=== PATIENT | male | born 1955 | race Caucasian/White ===

== ENCOUNTER 2018-05-26 07:43 | Inpatient (IN) | payer OTHER ==
[~2018-05-26] VITALS: Ht 182.9 cm; Wt 88.9 kg
[~2018-05-26 07:43] MED LIST: ASPI-515 PO; FOLI-17 PO; FURO-93 PO; LACT1CAP35 PO; MAGN400T7 PO; MULT1TAB41 PO; PANT40TA3 PO; SPIR50TA PO; THIA100T10 PO
[2018-05-26] MEDS ORDERED: LIDOCAINE-MPF 1%, 5ML ONE (08:03)
[2018-05-26 08:28] LABS: ALANINE AMINOTRANSFERASE 92 U/L (12-78); ALBUMIN 1.3 g/dL (3.4-5.0); ANION GAP 15 mmol/L (5-15); CALCIUM 7.9 mg/dL (8.5-10.1); CHLORIDE 81 mmol/L (98-107); CREATININE 2.53 mg/dL (0.7-1.3)
[2018-05-26 08:31] LABS: ALKALINE PHOSPHATASE 148 U/L (45-117); BILIRUBIN,TOTAL 11.1 mg/dL (0.2-1.0); TOTAL PROTEIN 6.2 g/dL (6.4-8.2)
[2018-05-26 08:46] LABS: MEAN CORPUSCULAR HEMOGLOBIN 39.5 pg (27.5-34.5); MEAN CORPUSCULAR HGB CONC 33.6 g/dL (33.2-36.2); MEAN CORPUSCULAR VOLUME 117.6 fL (81-97); MEAN PLATELET VOLUME 8.7 fL (7.4-10.4); PLATELET COUNT 66 x10^3/uL (130-400); RED BLOOD COUNT 3.27 x10^6/uL (4.38-5.82); RED CELL DISTRIBUTION WIDTH 15.9 % (9.4-14.8)
[2018-05-26 08:47] LABS: MD MORPH REVIEW ONLY
[2018-05-26 08:48] LABS: BASOPHILS # (AUTO) 0.07 x10^3/uL (0-0.1); BASOPHILS % (AUTO) 0 % (0-1); EOSINOPHILS # (AUTO) 0.02 x10^3/uL (0-0.4); EOSINOPHILS % (AUTO) 0 % (1-7); LYMPHOCYTES # (AUTO) 0.55 x10^3/uL (1-3.4); LYMPHOCYTES % (AUTO) 3 % (22-44); MONOCYTES # (AUTO) 1.19 x10^3/uL (0.2-0.8); MONOCYTES % (AUTO) 7 % (2-9); NEUTROPHILS # (AUTO) 14.35 x10^3/uL (1.8-6.8); NEUTROPHILS % (AUTO) 89 % (42-75)
[2018-05-26 08:49] LABS: <PLATELET ESTIMATE> DECREASED; <PLT MORPHOLOGY> NORMAL PLT MORPH; ANISOCYTOSIS 1+
[2018-05-26 10:01] LABS: INTERNATIONAL NORMALIZED RATIO 2.27 (0.93-1.1)
[2018-05-26 10:16] LABS: PROTHROMBIN TIME 23.2 Seconds (9.6-11.5)
[2018-05-26] MEDS ORDERED: SODIUM CHLORIDE FLUSH 10ML SYR IVF PRN (10:30)
[2018-05-26] MEDS ORDERED: ALBUMIN HUMAN 25% 100 ML IV ONE (11:00)
[2018-05-26 11:37] VITALS: BP 115/67
[2018-05-26] MEDS ORDERED: BISACODYL 10 MG SUPP PR PRN (12:30)
[2018-05-26] MEDS ORDERED: OXYcodone IR 5MG TABLET PO PRN (12:30)
[2018-05-26] MEDS ORDERED: ONDANSETRON 2MG/ML, 2ML IVPush PRN (12:30)
[2018-05-26] MEDS ORDERED: POLYETHYLENE GLYCOL 17 GM PACKET PO PRN (12:30)
[2018-05-26] MEDS: SODIUM CHLORIDE 0.9% 1,000 ML IV SCH ×2 (12:58→23:03)
[2018-05-26] MEDS ORDERED: morphine SULFATE 10 MG/ML, 1ML IVPush PRN (13:00)
[2018-05-26 13:09] VITALS: BP 104/62
[2018-05-26 20:08] VITALS: BP 98/59
[2018-05-26] MEDS: MAGNESIUM OXIDE 400 MG TABLET PO SCH (20:25)
[2018-05-26] MEDS: LACTULOSE 10 GM/15 ML UDC PO SCH (20:25)
[2018-05-26] MEDS ORDERED: DOCUSATE 100 MG CAPSULE PO PRN (21:00)
[2018-05-26 23:56] VITALS: BP 95/53
[2018-05-27 00:54] VITALS: BP 98/58
[2018-05-27 04:39] LABS: INTERNATIONAL NORMALIZED RATIO 2.56 (0.93-1.1); PROTHROMBIN TIME 26.1 Seconds (9.6-11.5)
[2018-05-27 04:42] LABS: CHLORIDE 86 mmol/L (98-107)
[2018-05-27 04:43] LABS: MEAN CORPUSCULAR HEMOGLOBIN 41.5 pg (27.5-34.5); MEAN CORPUSCULAR HGB CONC 35.4 g/dL (33.2-36.2); MEAN CORPUSCULAR VOLUME 117.1 fL (81-97); MEAN PLATELET VOLUME 8.3 fL (7.4-10.4); PLATELET COUNT 56 x10^3/uL (130-400); RED CELL DISTRIBUTION WIDTH 15.8 % (9.4-14.8)
[2018-05-27 04:49] LABS: ALANINE AMINOTRANSFERASE 90 U/L (12-78); ALBUMIN 1.6 g/dL (3.4-5.0); ALKALINE PHOSPHATASE 124 U/L (45-117); ANION GAP 13 mmol/L (5-15); BILIRUBIN,TOTAL 11.4 mg/dL (0.2-1.0); CALCIUM 7.6 mg/dL (8.5-10.1); CREATININE 2.05 mg/dL (0.7-1.3); TOTAL PROTEIN 5.6 g/dL (6.4-8.2)
[2018-05-27 05:15] VITALS: BP 92/58
[2018-05-27] MEDS ORDERED: LACTULOSE 3.3 GM/5 ML ORAL.SOL RC ONE (05:30)
[2018-05-27 05:50] LABS: BASOPHILS % (AUTO) 0 % (0-1); EOSINOPHILS # (AUTO) 0.02 x10^3/uL (0-0.4); EOSINOPHILS % (AUTO) 0 % (1-7); LYMPHOCYTES # (AUTO) 0.71 x10^3/uL (1-3.4); LYMPHOCYTES % (AUTO) 5 % (22-44); MD SCAN; MONOCYTES # (AUTO) 1.65 x10^3/uL (0.2-0.8); MONOCYTES % (AUTO) 13 % (2-9); NEUTROPHILS # (AUTO) 10.73 x10^3/uL (1.8-6.8); NEUTROPHILS % (AUTO) 82 % (42-75)
[2018-05-27 09:00] VITALS: BP 110/67
[2018-05-27] MEDS: THIAMINE 100MG TABLET PO SCH (09:00)
[2018-05-27] MEDS: PANTOPROZOLE 40MG TABLET PO SCH (09:00)
[2018-05-27] MEDS: LACTULOSE 10 GM/15 ML UDC PO SCH ×6 (09:00→21:46)
[2018-05-27] MEDS: FOLIC ACID 1 MG TABLET PO SCH (09:00)
[2018-05-27] MEDS: MAGNESIUM OXIDE 400 MG TABLET PO SCH ×2 (09:00→21:46)
[2018-05-27] MEDS: FUROSEMIDE 20 MG TABLET PO SCH (09:00)
[2018-05-27] MEDS: MULTIVITAMINS/MINERALS TABLET PO SCH (09:00)
[2018-05-27] MEDS: SPIRONOLACTONE 50 MG TABLET PO SCH (09:00)
[2018-05-27] MEDS: SODIUM CHLORIDE 0.9% 1,000 ML IV SCH ×2 (10:49→21:48)
[2018-05-27 15:15] VITALS: BP 106/63
[2018-05-27 21:37] VITALS: BP 107/63
[2018-05-27] MEDS: RIFAXIMIN 550 MG TABLET PO SCH (21:46)
[2018-05-28 02:07] VITALS: BP 123/73
[2018-05-28 04:25] LABS: ALBUMIN 1.5 g/dL (3.4-5.0); ANION GAP 13 mmol/L (5-15); CALCIUM 7.7 mg/dL (8.5-10.1); CHLORIDE 91 mmol/L (98-107)
[2018-05-28 04:29] LABS: ALANINE AMINOTRANSFERASE 113 U/L (12-78); ALKALINE PHOSPHATASE 140 U/L (45-117); BILIRUBIN,TOTAL 12.3 mg/dL (0.2-1.0); CREATININE 2.16 mg/dL (0.7-1.3); TOTAL PROTEIN 5.8 g/dL (6.4-8.2)
[2018-05-28 07:06] VITALS: BP 108/61
[2018-05-28 07:39] LABS: MEAN CORPUSCULAR HEMOGLOBIN 41.2 pg (27.5-34.5); MEAN CORPUSCULAR HGB CONC 34.7 g/dL (33.2-36.2); MEAN CORPUSCULAR VOLUME 118.7 fL (81-97); MEAN PLATELET VOLUME 8.7 fL (7.4-10.4); PLATELET COUNT 70 x10^3/uL (130-400); RED BLOOD COUNT 2.93 x10^6/uL (4.38-5.82)
[2018-05-28 07:41] LABS: BASOPHILS # (AUTO) 0.01 x10^3/uL (0-0.1); BASOPHILS % (AUTO) 0 % (0-1); EOSINOPHILS # (AUTO) 0.02 x10^3/uL (0-0.4); EOSINOPHILS % (AUTO) 0 % (1-7); LYMPHOCYTES # (AUTO) 0.71 x10^3/uL (1-3.4); LYMPHOCYTES % (AUTO) 5 % (22-44); MD SCAN; MONOCYTES # (AUTO) 1.84 x10^3/uL (0.2-0.8); MONOCYTES % (AUTO) 14 % (2-9); NEUTROPHILS # (AUTO) 10.61 x10^3/uL (1.8-6.8); NEUTROPHILS % (AUTO) 80 % (42-75); RED CELL DISTRIBUTION WIDTH 16.3 % (9.4-14.8)
[2018-05-28] MEDS: FUROSEMIDE 20 MG TABLET PO SCH (09:00)
[2018-05-28] MEDS: MAGNESIUM OXIDE 400 MG TABLET PO SCH ×2 (09:00→20:41)
[2018-05-28] MEDS: LACTULOSE 10 GM/15 ML UDC PO SCH ×6 (09:48→20:41)
[2018-05-28] MEDS: RIFAXIMIN 550 MG TABLET PO SCH ×2 (09:53→20:41)
[2018-05-28] MEDS: SPIRONOLACTONE 50 MG TABLET PO SCH (09:53)
[2018-05-28] MEDS: SODIUM CHLORIDE 0.9% 1,000 ML IV SCH ×2 (10:07→17:13)
[2018-05-28] MEDS: THIAMINE 100MG TABLET PO SCH (12:00)
[2018-05-28] MEDS: FOLIC ACID 1 MG TABLET PO SCH (12:54)
[2018-05-28] MEDS: PANTOPROZOLE 40MG TABLET PO SCH (12:54)
[2018-05-28] MEDS: MULTIVITAMINS/MINERALS TABLET PO SCH (12:54)
[2018-05-28 16:56] VITALS: BP 100/64
[2018-05-28 21:12] VITALS: BP 109/55
[2018-05-29 02:26] VITALS: BP 95/57
[2018-05-29] MEDS: SODIUM CHLORIDE 0.9% 1,000 ML IV SCH (04:38)
[2018-05-29 05:22] LABS: INTERNATIONAL NORMALIZED RATIO 2.62 (0.93-1.1); MEAN CORPUSCULAR HEMOGLOBIN 41.4 pg (27.5-34.5); MEAN CORPUSCULAR HGB CONC 34.9 g/dL (33.2-36.2); MEAN CORPUSCULAR VOLUME 118.6 fL (81-97); MEAN PLATELET VOLUME 8.4 fL (7.4-10.4); PLATELET COUNT 69 x10^3/uL (130-400); PROTHROMBIN TIME 26.7 Seconds (9.6-11.5); RED BLOOD COUNT 2.94 x10^6/uL (4.38-5.82); RED CELL DISTRIBUTION WIDTH 17.8 % (9.4-14.8)
[2018-05-29 05:24] LABS: ALBUMIN 1.4 g/dL (3.4-5.0); ANION GAP 13 mmol/L (5-15); CALCIUM 7.7 mg/dL (8.5-10.1); CHLORIDE 98 mmol/L (98-107)
[2018-05-29 05:27] LABS: ALANINE AMINOTRANSFERASE 140 U/L (12-78); ALKALINE PHOSPHATASE 140 U/L (45-117); BILIRUBIN,TOTAL 12.7 mg/dL (0.2-1.0); CREATININE 2.69 mg/dL (0.7-1.3); TOTAL PROTEIN 5.7 g/dL (6.4-8.2)
[2018-05-29 05:43] LABS: BASOPHILS # (AUTO) 0.01 x10^3/uL (0-0.1); BASOPHILS % (AUTO) 0 % (0-1); EOSINOPHILS # (AUTO) 0.02 x10^3/uL (0-0.4); EOSINOPHILS % (AUTO) 0 % (1-7); LYMPHOCYTES # (AUTO) 0.62 x10^3/uL (1-3.4); LYMPHOCYTES % (AUTO) 5 % (22-44); MD SCAN; MONOCYTES # (AUTO) 1.87 x10^3/uL (0.2-0.8); MONOCYTES % (AUTO) 14 % (2-9); NEUTROPHILS # (AUTO) 11.17 x10^3/uL (1.8-6.8); NEUTROPHILS % (AUTO) 82 % (42-75)
[2018-05-29 07:20] VITALS: BP 103/62
[2018-05-29] MEDS: LACTULOSE 10 GM/15 ML UDC PO SCH (09:30)
[2018-05-29] MEDS: FOLIC ACID 1 MG TABLET PO SCH (09:34)
[2018-05-29] MEDS: MAGNESIUM OXIDE 400 MG TABLET PO SCH (09:34)
[2018-05-29] MEDS: MULTIVITAMINS/MINERALS TABLET PO SCH (09:35)
[2018-05-29] MEDS: RIFAXIMIN 550 MG TABLET PO SCH (09:35)
[2018-05-29] MEDS: THIAMINE 100MG TABLET PO SCH (09:35)
[2018-05-29] MEDS: PANTOPROZOLE 40MG TABLET PO SCH (09:35)
[2018-05-29] MEDS ORDERED: ATIVAN SL (09:37)
[2018-05-29] MEDS ORDERED: roxanol SL (09:37)
== END 2018-05-29 10:55 | disposition hospice, home (50) | DRG 441 ==
LOC: ED 09:00 → EDIP 10:13 → 4WST 10:58
PROVIDERS: ADMIT Family Medicine; ATTEND Family Medicine
PROC: 0W9G3ZZ Drainage of Peritoneal Cavity, Percutaneous Approach (ICD-10-PCS; principal; 2018-05-26)
DX: K76.7 Hepatorenal syndrome (principal); E43 Unspecified severe protein-calorie malnutrition; K85.10 Biliary acute pancreatitis without necrosis or infection; N17.0 Acute kidney failure with tubular necrosis; D61.818 Other pancytopenia; D68.4 Acquired coagulation factor deficiency; E87.1 Hypo-osmolality and hyponatremia; J81.1 Chronic pulmonary edema; K76.6 Portal hypertension; K92.1 Melena; D69.59 Other secondary thrombocytopenia; K70.31 Alcoholic cirrhosis of liver with ascites; K70.11 Alcoholic hepatitis with ascites; D63.8 Anemia in other chronic diseases classified elsewhere; E86.0 Dehydration; K70.40 Alcoholic hepatic failure without coma; Z87.891 Personal history of nicotine dependence; N18.3 Chronic kidney disease, stage 3 (moderate); Z66 Do not resuscitate; Z79.899 Other long term (current) drug therapy; Z68.26 Body mass index [BMI] 26.0-26.9, adult; F10.20 Alcohol dependence, uncomplicated
CPT/HCPCS: 36415; 49083; 71045; 80053; 80074; 82042; 82140; 83690; 83735; 84100; 84157; 85025; 85610; 85730; 87070; 87075; 87205; 89051; 93005; 99291; G0378; P9047; J2270; J7030